=== PATIENT | male | born 1975 | race Caucasian/White ===

== ENCOUNTER 2017-07-08 21:15 | Emergency (ER) | payer MEDICAID ==
[~2017-07-08] VITALS: Ht 162.6 cm; Wt 81.6 kg
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
[2017-07-08] MEDS ORDERED: TDAP [DIPH/PERTUSSIS/TET] 0.5 ML VIAL IM ONE (21:28)
[2017-07-08] MEDS: TDAP [DIPH/PERTUSSIS/TET] 0.5 ML VIAL IM ONE (21:31)
[2017-07-08] MEDS ORDERED: LIDOCAINE 2% 20 ML MDV ONE (23:35)
[2017-07-09] MEDS: LIDOCAINE 1% INJ 50 ML MDV IJ ONE (01:02)
[2017-07-09] MEDS ORDERED: AMOX/CLAVULANATE 875 MG TABLET ONE (01:03)
[2017-07-09] MEDS: AMOX/CLAVULANATE 875 MG TABLET PO ONE (01:03)
--- NOTE | 2017-07-09 01:14 | NUR ---
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
[2017-07-09 01:22] VITALS: BP 144/90
== END 2017-07-09 01:23 | disposition home or self-care (01) ==
LOC: ER 21:16
DX: S42.442A Displaced fracture (avulsion) of medial epicondyle of left humerus, initial encounter for closed fracture (principal); S02.2XXA Fracture of nasal bones, initial encounter for closed fracture; S02.19XA Other fracture of base of skull, initial encounter for closed fracture; S02.40FA Zygomatic fracture, left side, initial encounter for closed fracture; S02.40EA Zygomatic fracture, right side, initial encounter for closed fracture; S01.21XA Laceration without foreign body of nose, initial encounter; R51 Headache; M79.602 Pain in left arm; Y08.02XA Assault by strike by baseball bat, initial encounter; Y93.64 Activity, baseball; Y92.89 Other specified places as the place of occurrence of the external cause; Y99.8 Other external cause status
CPT/HCPCS: 70450-TC; 70486-TC; 72125-TC; 73060-TC; 73080-TC; 90715; A4606; A6403; J3490; Z7610